=== PATIENT | female | born 1945 | race Caucasian/White ===

== ENCOUNTER 2018-07-20 05:33 | Inpatient (IN) | payer MEDICARE ==
--- NOTE | 2018-07-07 15:07 | HP ---
Amended report to enter cosigning physician. HISTORY AND PHYSICAL: DATE OF ADMISSION/SURGERY: 07/20/18 DATE OF OFFICE VISIT: 07/07/18 SURGEON: Carole Conner MD* (dictated by DEBBIE Mcqueen). PROCEDURE: Right total knee arthroplasty. CHIEF COMPLAINT: Right knee pain. HISTORY OF PRESENT ILLNESS: Ms. Jack is a 72-year-old female with complaints of right knee pain. She has failed conservative treatment and elected to proceed with a right total knee arthroplasty. PAST MEDICAL HISTORY: Hypertension and high cholesterol. PAST SURGICAL HISTORY: 1. Bilateral total hip arthroplasties. 2. Low back surgery. 3. Right knee arthroscopy. 4. Oophorectomy. 5. Removal of a cyst from one of her kidneys. CURRENT MEDICATIONS: 1. Irbesartan 300 mg a day. 2. Hydrochlorothiazide 25 mg a day. 3. Vitamin D. 4. Multivitamin. ALLERGIES: To VICODIN causing hallucinations. DILAUDID causing difficulty breathing. TRAMADOL causing hyperactivity. FLEXERIL causing difficulty swallowing and loss of bladder control and LISINOPRIL. FAMILY HISTORY: Prostate cancer and stroke. SOCIAL HISTORY: She is 72-year-old. She lives with her . She does not smoke or use drugs. REVIEW OF SYSTEMS: A complete 14-point review of systems was reviewed with the patient. It was all negative or noncontributory. She denies history of DVT, PE , hepatitis, HIV, or anesthesia problems. PHYSICAL EXAMINATION GENERAL: She is well developed, well nourished, in no acute distress. VITAL SIGNS: She stands 5 feet 2 inches tall, weighs 209 pounds. Her blood pressure is 126/76. Her heart rate is 72. HEENT: Normocephalic, atraumatic. NECK: Supple. No palpable lymph nodes. PULMONARY: Her lungs are clear to auscultation bilaterally. CARDIO: Regular rate and rhythm. Strong S1, S2. ABDOMEN: Soft, nontender, nondistended. NEUROLOGICAL: She is alert and oriented x3. MUSCULOSKELETAL: Right lower extremity: The skin is intact. There are no open wounds or abrasions. Some moderate effusion of the right knee joint. Some tenderness over the medial and lateral joint line. Range of motion is 15 to 110 degrees of flexion. She has 2+ dorsalis pedis pulses. She is able to dorsiflex and plantarflex. ASSESSMENT AND PLAN: Mr. Jack is a 72-year-old female with endstage osteoarthritis of the right knee. She has failed conservative treatment and elected to proceed with a right total knee arthroplasty. The surgery is scheduled for 07/20/[address] Conner discussed the risks and benefits of the surgery at today's visit and all of her questions were answered. She will follow up with Dr. Conner 2 weeks after the surgery. DEBBIE MCQUEEN [id number]/CPS #: [id number] MTDJalli
[~2018-07-20 05:33] MED LIST: Buffered Lidocaine 1% SYRIN* 1 ML/SYRINGE INTRADERM ONE; Tranexamic Acid 1,000 MG in NS 0.9% 50 ML* (outpatient use) IV SCH
--- OUTSIDE RECORDS SUMMARY | 2018-07-20 05:36 | XMS REPORT | Continuity of Care Document ---
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 Payers Date Identification Numbers Payment Provider Subscriber Policy Number: [id number] Medicare - [employer]swn[employer]md Anna Jack PayID: [id number] [address] [place] [address] Effective: 2011 Policy Number: [employer] Medicare Anna Jack [id number] Supplement PayID: [id number] [address] [place] [address] Family History Date Family Member(s) Observation Comments Father 91 Father Tias Father Hypertension : (age 41 Mother due to Heart rheumatic heart Years) Disease disease Children 3 First Son 54 First Daughter 51 First Daughter Crohn's Disease Second Daughter 38 Second Daughter Anxiety Second Daughter Depression First Sister 65 First Sister Hypertension First Sister Tias Second Sister 60 Second Sister Hypertension Second Sister Hemochromatosis Social History Type Date Description Comments Sex Unknown Tobacco Use Start: Unknown Never Smoked Cigarettes ETOH Use Denies alcohol use Tobacco Use Start: Unknown Patient has never smoked Smoking Status Reviewed: 06/27/18 Patient has never smoked Currently Active Patient is currently sexually active # Partners in a Lifetime 1 STD's No STD History Allergies, Adverse Reactions, Alerts Active Allergies Reaction Severity Comments Date Hydrocodone 04/18/2018 Dilaudid shortness of breath 04/18/2018 Cyclobenzaprine 04/18/2018 Tramadol 04/18/2018 Medications Active Medications SIG Qnty Indications Ordering Date Provider Ergocalciferol take 1 capsule 8caps Bri Trujillo, 04/18/2018 [id number] Capsules by mouth weekly [employer] for vitamin d deficiency Hydrochlorothiazide Take One Tablet 90tabs Bri Ronnie, 25mg Tablets By Mouth Every [employer] Day Irbesartan take one tablet 90tabs Bri Ronnie, 300mg Tablets by mouth every [employer] day Vital Signs Date Vital Result Comment 06/27/2018 11:00am Weight 210.00 lb Weight 95.256 kg BP Systolic 124 mmHg BP Diastolic 76 mmHg Heart Rate 72 /min Body Temperature 98.0 F Respiratory Rate 16 /min 04/18/2018 9:06am Weight 212.00 lb Weight 96.163 kg BP Systolic 124 mmHg BP Diastolic 72 mmHg Heart Rate 72 /min Body Temperature 97.5 F Respiratory Rate 16 /min Height 64.5 inches 5'4.50" BMI (Body Mass Index) 35.8 kg/m2 O2 % BldC Oximetry 97 % Results Test Date Facility Test Result H/L Range Note CBC Auto Diff 04/18/2018 [facility] White Blood 7.0 10^3/uL N 3.5-10.8 [phone] Count Red Blood Count 4.52 10^6/uL N 4.00-5.40 Hemoglobin 14.3 g/dL N 12.0-16.0 Hematocrit 43 % N 35-47 Mean Corpuscular Volume 95 fL N 80-97 Mean Corpuscular Hemoglobin 32 pg High 27-31 Mean Corpuscular HGB Conc 33 g/dL N 31-36 Red Cell Distribution Width 13 % N 10.5-15 Platelet Count 347 10^3/uL N 150-450 Mean Platelet Volume 8.5 fL N 7.4-10.4 Abs Neutrophils 4.8 10^3/uL N 1.5-7.7 Abs Lymphocytes 1.5 10^3/uL N 1.0-4.8 Abs Monocytes 0.5 10^3/uL N 0-0.8 Abs Eosinophils 0.2 10^3/uL N 0-0.6 Abs Basophils 0 10^3/uL N 0-0.2 Abs Nucleated RBC 0 10^3/uL Granulocyte % 68.4 % Lymphocyte % 20.9 % Monocyte % 7.3 % Eosinophil % 2.9 % Basophil % 0.5 % Nucleated Red Blood Cells % 0 Comp Metabolic Panel 04/18/2018 [facility] Sodium 137 mmol/L N 135-145 [phone] Potassium 4.1 mmol/L N 3.5-5.0 Chloride 103 mmol/L N 101-111 Co2 Carbon Dioxide 28 mmol/L N 22-32 Anion Gap 6 mmol/L N 2-11 Glucose 100 mg/dL N 70-100 Blood Urea Nitrogen 24 mg/dL N 6-24 Creatinine 0.68 mg/dL N 0.51-0.95 BUN/Creatinine Ratio 35.3 High 8-20 Calcium 9.1 mg/dL N 8.6-10.3 Total Protein 6.7 g/dL N 6.4-8.9 Albumin 3.9 g/dL N 3.2-5.2 Globulin 2.8 g/dL N 2-4 Albumin/Globulin Ratio 1.4 N 1-3 Total Bilirubin 0.80 mg/dL N 0.2-1.0 Alkaline Phosphatase 60 U/L N 34-104 Alt 12 U/L N 7-52 Ast 18 U/L N 13-39 Egfr Non- 85.3 >60 Egfr 103.2 >60 1 Laboratory test 04/18/2018 [facility] Vitamin D Total 18.0 ng/mL Low 20-50 2 finding [phone] 25(Oh) Lipid Profile 04/18/2018 [facility] Triglycerides 169 mg/dL 3 (Trig/Chol/HDL) [phone] Cholesterol 177 mg/dL 4 HDL Cholesterol 46.1 mg/dL 5 LDL Cholesterol 97 mg/dL 6 1 Because ethnic data is not always readily available, this report includes an eGFR for both -Americans and non- Americans. The National Kidney Disease Education Program (NKDEP) does not endorse the use of the MDRD equation for patients that are not between the ages of 18 and 70, are , have extremes of body size, muscle mass, or nutritional status, or are non- or non-. According to the National Kidney Foundation, irrespective of diagnosis, the stage of the disease is based on the level of kidney function: Stage Description GFR(mL/min/1.73 m(2)) 1 Kidney damage with normal or decreased GFR 90 2 Kidney damage with mild decrease in GFR 60-89 3 Moderate decrease in GFR 30-59 4 Severe decrease in GFR 15-29 5 Kidney failure <15 (or dialysis) 2 [id number] 3 Desirable: <150 Borderline High: 150-199 High: 200-499 Very High: >500 4 Desirable: <200 Borderline High: 200-239 High: >239 5 Low: <40 Desirable: 40-60 High: >60 6 Desirable: <100 Near Optimal: 100-129 Borderline High: 130-159 High: 160-189 Very High: >189 Encounters Type Date Location Provider Dx Diagnosis Office Visit 04/18/2018 Main Office Bri Trujillo NP I10 Essential ( primary) 9:00a hypertension E55.9 Vitamin D deficiency, unspecified M67.441 Ganglion, right hand M25.569 Pain in unspecified knee Plan of Treatment 06/27/2018 - Bri Trujillo NPZ01.818 Encounter for other preprocedural examinationFollow up:.
--- OUTSIDE RECORDS SUMMARY | 2018-07-20 05:36 | XMS REPORT | Continuity of Care Document ---
:1945 External Reference #:[id number] Author Name Vandana Ruby Care Team Providers Name Role Phone Bri Trujillo F.N.P. Primary Care Physician Unavailable Payers Date Identification Numbers Payment Provider Subscriber Policy Number: [id number] Medicare Anna Jack PayID: [id number] [address] [place] [address] Policy Number: [id number] [facility] Anna Jack PayID: [id number] [address] [place] [address] Problems Active Problems Provider Date Localized, primary osteoarthritis Carole Conner M.D. Onset: 05/17/2018 Family History Date Family Member(s) Observation Comments General Hypertension General Stroke Social History Type Date Description Comments Sex Unknown Lives With Spouse Occupation Retired ETOH Use Denies alcohol use Tobacco Use Start: Unknown Patient has never smoked Smoking Status Reviewed: 07/07/18 Patient has never smoked Exercise Type/Frequency Exercises sporadically Allergies, Adverse Reactions, Alerts Active Allergies Reaction Severity Comments Date Vicodin 05/17/2018 Dilaudid 05/17/2018 Tramadol 07/07/2018 Cyclobenzaprine 07/07/2018 Lisinopril 07/07/2018 Inactive Allergies Additional 3 Unknown Medications, Patient Will Call With Orn 05/17/2018 Medications Active Medications SIG Qnty Indications Ordering Date Provider Irbesartan Unknown 300mg Tablets Hydrochlorothiazide Bri Trujillo, 25mg Tablets F.N.P. Vitamin D 1 by mouth Unknown 2000Unit Tablets every day Multivitamin Adult Unknown Medications Administered in Office Medication SIG Qnty Indications Ordering Provider Date Depomedrol 40MG Carole Conner M.D. 05/17/2018 Injection Vital Signs Date Vital Result Comment 07/07/2018 9:15am Height 63.75 inches 5'3.75" Weight 209.00 lb Heart Rate 72 /min BP Systolic 126 mmHg BP Diastolic 76 mmHg BMI (Body Mass Index) 36.2 kg/m2 05/17/2018 10:21am Height 63.75 inches 5'3.75" Weight 213.00 lb Heart Rate 72 /min BP Systolic 136 mmHg BP Diastolic 80 mmHg Pain Level 8 BMI (Body Mass Index) 36.8 kg/m2 Procedures Date Code Description Status 05/17/2018 48406 Inject/Drain Joint/Bursa Major W/O US Completed Encounters Type Date Location Provider Dx Diagnosis Office Visit 05/17/2018 [facility] Conner, M25.561 [facility]461 Effusion, right knee M17.11 Unilateral primary osteoarthritis, right knee Plan of Treatment Future Appointment(s):07/31/2018 1:00 pm - Carole Conner M.D. at [facility].07/20/2018 7:30 am - [facility] 7:30 am - FRANKLIN Batres at [facility].07/20/2018 7:30 am - [facility] 7:30 am - Carole Conner M.D. at [facility].07/07/2018 - Carole Conner M.D.M25.561 Pain in right kneeFollow up:Follow up: 2 weeks after agayajqO54.461 Effusion, right kneeM17.11 Unilateral primary osteoarthritis, right knee
[2018-07-20] MEDS ORDERED: Gabapentin CAP(*) 300 MG ONE (05:58)
[2018-07-20] MEDS ORDERED: Dexamethasone IV* 4 MG/ML 1 ML (4 MG) ONE (05:58)
[2018-07-20] MEDS ORDERED: ceFAZolin 2 GM PREMIX in ORs 2 GM/50 ML BAG ONE (05:59)
[2018-07-20] MEDS ORDERED: celeCOXIB CAP* 200 MG ONE (05:59)
[2018-07-20] MEDS ORDERED: Famotidine IV* 10 MG/ML 2 ML (20 mg) ONE (05:59)
[2018-07-20] MEDS ORDERED: celeCOXIB CAP* 200 MG PO ONE (06:00)
[2018-07-20] MEDS ORDERED: Dexamethasone IV* 4 MG/ML 1 ML (4 MG) IV SLOW PU ONE (06:00)
[2018-07-20] MEDS ORDERED: Famotidine IV* 10 MG/ML 2 ML (20 mg) IV ONE (06:00)
[2018-07-20] MEDS ORDERED: Gabapentin CAP(*) 300 MG PO ONE (06:00)
[2018-07-20] MEDS ORDERED: Lactated Ringers 1000 ML Bag* 1,000 ML IV SCH (06:00)
[2018-07-20] MEDS ORDERED: ROPIVACAINE 5 MG/ML 30 ML BTL (0.5%) ONE ×2 (06:56→07:08)
[2018-07-20] MEDS ORDERED: Phenylephrine 10 MG/ML VIAL* 1 ML VIAL ONE (07:02)
[2018-07-20] MEDS ORDERED: Propofol* 10 MG/ML 20 ML BTL ONE (07:06)
[2018-07-20] MEDS ORDERED: Bupivacaine 0.5% SDV PF* 30ML VIAL ONE (07:06)
[2018-07-20] MEDS ORDERED: fentaNYL* 50 MCG/ML 2 ML VIAL (100 MCG VIAL) ONE (07:06)
[2018-07-20] MEDS ORDERED: Midazolam* 1 MG/ML 5 ML VIAL (5 MG) ONE (07:06)
[2018-07-20] MEDS ORDERED: Ondansetron INJ* 2 MG/ML VIAL ONE (07:06)
[2018-07-20] MEDS ORDERED: KETAMINE HCL* 50 MG/ML 10 ML VIAL ONE (07:07)
[2018-07-20] MEDS ORDERED: Lidocaine 2% PF * 5 ML VIAL ONE (08:22)
[2018-07-20] MEDS ORDERED: Glycopyrrolate IV* 0.2 MG/ML 1 ML VIAL ONE (09:16)
[2018-07-20] MEDS ORDERED: Atropine 1MG/ML INJ* 1 ML VIAL ONE (09:16)
[2018-07-20] MEDS ORDERED: Ondansetron INJ* 2 MG/ML VIAL IV PRN ×2 (09:18→10:04)
[2018-07-20] MEDS ORDERED: fentaNYL* 50 MCG/ML 2 ML VIAL (100 MCG VIAL) IV PRN (09:18)
[2018-07-20] MEDS ORDERED: Naloxone* 0.4 MG/ML 1 ML VIAL IV PRN (09:18)
[2018-07-20] MEDS ORDERED: DiMENhydriNATE IV* 50 MG/ML VIAL IV PUSH PRN (09:18)
[2018-07-20] MEDS ORDERED: Polyethylene Glycol 3350* 17 GM PACKET PO PRN (10:04)
[2018-07-20] MEDS ORDERED: diPHENhydraMINE PO* 25 MG PO PRN (10:04)
[2018-07-20] MEDS ORDERED: diPHENhydraMINE IV* 50 MG/ML 1 ml VIAL (BENADRYL) IV PRN (10:04)
[2018-07-20] MEDS ORDERED: Magnesium Hydroxide LIQ* 30 ML UDC PO PRN (10:04)
[2018-07-20] MEDS ORDERED: Morphine INJ* 2 MG/ML 1 ML SYRINGE (TWO MG - NEW SYRINGE VERSION) IV PRN (10:04)
[2018-07-20] MEDS ORDERED: Bisacodyl SUPP* 10 MG SUPP PR PRN (10:04)
[2018-07-20] MEDS ORDERED: traMADol TAB* 50 MG PO PRN (10:04)
[2018-07-20] MEDS: Acetaminophen TAB* 325 MG PO SCH ×2 (13:37→18:01)
[2018-07-20] MEDS: Lactated Ringers 1000 ML Bag* 1,000 ML IV SCH ×2 (13:57→23:59)
[2018-07-20] MEDS: oxyCODONE TAB* 5 MG TAB PO PRN ×3 (14:20→23:57)
--- NOTE | 2018-07-20 14:47 | PN ---
Progress Note - Progress Note Date of Service: 07/20/18 Note: Patient seen at bedside, eating. Feeling well without right knee pain, s/p RTK this am. +DF right ankle, sensation intact. Dressing dry.
[2018-07-20] MEDS: Ketorolac INJ* 15 MG/ML 1 ML VIAL IV PUSH PRN ×2 (15:19→22:13)
[2018-07-20] MEDS: ceFAZolin 1 GM ADVAN(*) 1 GM in NS 0.9% 50 ML* 50 ML IVPB SCH ×2 (16:11→23:59)
--- NOTE | 2018-07-20 17:22 | CONSULT ---
Subjective Date of Service: 07/20/18 Interval History: This is a 72 year old female patient with history of HTN and OA that presented to Dr. Conner with complaint of right knee pain that failed conservative outpatient treatment. She has undergone elective RTKA today and has had an uneventful perioperative course. She describes some difficult pain in the immediate post operative period which is now improved. She denies fever, fatigue or chills, no SOB, no chest pain, no n/v. No further complaints. We are consulted for medical co-management. Family History: Unchanged from Admission - non-contributory Social History: Unchanged from Admission - no tobacco, no ETOH, no drug use Past Medical History: Unchanged from Admission - OA, HTN, obesity Review of Systems - Measurements Intake and Output: Intake and Output Last 24 Hours 07/18/18 07/19/18 07/20/18 07/21/18 06:59 06:59 06:59 06:59 Intake Total 2300 Output Total 1025 Balance 1275 Weight 212 lb Intake: IV Fluids 2000 LR 0 lr 2000 Oral 300 Output: Mcdaniel 1025 - Review of Systems Constitutional Symptoms: Negative: Weight Gain, Weight Loss, Weakness, Fatigue, Fever, Night Sweats, Unexplained Falls, Other Dermatology: Negative: Normal, Rash, Skin Lesions, Cancer, Skin Lumps, Other HEENT: Negative: Normal, Change in Hearing, Vertigo, Dental Problems, Tinnitus, Sinus Problem, Other Eyes: Negative: Normal, Change in Vision, Double Vision, Eye Pain, Glaucoma, Cataract, Contacts or Glasses, Other Thyroid: Negative: Normal, Goiter, Thyroid Nodule, Cold Intolerance, Heat Intolerance , Sweatiness, Tremor, Frequent Defecation, Constipation, Palpitations, Primary Hypothyroidism, Primary Hyperthyroidism, Weight Loss, Weight Gain, Change in Skin/Hair, Change in Menstruation, Radiation Exposure, Other Pulmonary: Negative: Normal, Cough, Sputum, Hemoptysis, Wheezing, Respiratory Distress, Shortness of Breath, COPD, Asthma, Exercise Intolerance, Home Oxygen, Other Cardiology: Negative: Normal, Chest Pain, Shortness of Breath, Palpitations, Swelling of Ankles, Peripheral Vascular Dis, Edema, Faintness, Syncope, Claudication, Proximal NocturnalDyspnea, Orthopnoea, Other Gastroenterology: Negative: Normal, Abdominal Pain, Nausea, Vomiting, Anorexia, Indigestion, Difficulty Swallowing, Heartburn, Constipation, Diarrhea, Blood in Stools, Change in Bowel Habits, Haematemesis, Melena, Other Musculoskeletal: Positive: Joint Pain, Joint Stiffness Negative: Arthritis, Osteoporosis, Low Back Pain, Sciatica, Joint Deformities , Kyphoscoliosis, Other Endocrinology: Positive: Obesity Objective Active Medications: Acetaminophen (Tylenol Tab*) 975 mg PO Q8H [facility] Last Admin: 07/20/18 13:37 Dose: Not Given Apixaban (Eliquis*) 2.5 mg PO BID [facility] Bisacodyl (Dulcolax Supp*) 10 mg W[place] DAILY PRN PRN Reason: constipation Cholecalciferol (Vitamin D Tab*) 2,000 units PO QAM [facility] Diphenhydramine HCl (Benadryl Iv*) 25 mg IV Q6H PRN PRN Reason: itching Diphenhydramine HCl (Benadryl Po*) 25 mg PO Q6H PRN PRN Reason: INSOMNIA Docusate Sodium (Colace Cap*) 100 mg PO BID [facility] Hydrochlorothiazide (Hydrodiuril Tab*) 25 mg PO QPM [facility] Tranexamic Acid 1,000 mg/ (Sodium Chloride) 60 mls @ 120 mls/hr IV ONCE Stop: 07/20/18 23:59 Cefazolin Sodium 1 gm/ Sodium (Chloride) 50 mls @ 200 mls/hr IVPB Q8H [facility] Stop: 07/21/18 08:14 Last Admin: 07/20/18 16:11 Dose: 200 mls/hr Lactated Ringer's (Lactated Ringers 1000 Ml Bag*) 1,000 mls @ 100 mls/hr IV PER RATE [facility] Last Admin: 07/20/18 13:57 Dose: 100 mls/hr Ketorolac Tromethamine (Toradol Inj*) 15 mg IV PUSH Q6H PRN PRN Reason: PAIN Last Admin: 07/20/18 15:19 Dose: 15 mg Lactulose (Lactulose*) 30 ml PO Q6H PRN PRN Reason: constipation Losartan Potassium (Cozaar Tab*) 100 mg PO QPM [facility] Magnesium Hydroxide (Milk Of Magnesia Liq*) 30 ml PO BID [facility] Magnesium Hydroxide (Milk Of Magnesia Liq*) 30 ml PO Q6H PRN PRN Reason: constipation Morphine Sulfate (Morphine Inj (Syringe))*) 2 mg IV Q2H PRN PRN Reason: PAIN Ondansetron HCl (Zofran Inj*) 4 mg IV Q6H PRN PRN Reason: nausea Oxycodone HCl (Roxycodone Tab*) 10 mg PO Q4H PRN PRN Reason: breakthru pain Last Admin: 07/20/18 14:20 Dose: 10 mg Oxycodone/Acetaminophen (Percocet 5/325 Tab*) 2 tab PO Q3H PRN PRN Reason: PAIN - MODERATE Oxycodone/Acetaminophen (Percocet 5/325 Tab*) 1 tab PO Q3H PRN PRN Reason: PAIN - MODERATE Polyethylene Glycol/Electrolytes (Miralax*) 17 gm PO DAILY PRN PRN Reason: Constipation Tramadol HCl (Ultram*) 50 mg PO Q6H PRN PRN Reason: PAIN Vital Signs - 8 hr 07/20/18 07/20/18 07/20/18 09:58 10:00 10:10 Temperature 97.5 F Pulse Rate 72 71 72 Respiratory 17 Rate Blood Pressure 124/60 117/66 118/78 (mmHg) O2 Sat by Pulse 94 95 95 Oximetry 07/20/18 07/20/18 07/20/18 10:21 10:25 10:30 Temperature Pulse Rate 70 68 66 Respiratory 17 17 15 Rate Blood Pressure 121/64 123/74 117/70 (mmHg) O2 Sat by Pulse 97 96 96 Oximetry 07/20/18 07/20/18 07/20/18 10:45 11:00 11:15 Temperature Pulse Rate 63 58 58 Respiratory 25 15 17 Rate Blood Pressure 123/70 118/67 114/63 (mmHg) O2 Sat by Pulse 96 96 96 Oximetry 07/20/18 07/20/18 07/20/18 11:30 11:45 12:00 Temperature Pulse Rate 56 56 53 Respiratory 16 9 10 Rate Blood Pressure 113/63 119/62 125/63 (mmHg) O2 Sat by Pulse 92 93 95 Oximetry 07/20/18 07/20/18 07/20/18 12:15 12:30 12:45 Temperature Pulse Rate 55 52 59 Respiratory 14 9 13 Rate Blood Pressure 99/60 116/60 115/65 (mmHg) O2 Sat by Pulse 96 94 93 Oximetry 07/20/18 07/20/18 07/20/18 13:26 13:43 14:20 Temperature 97.4 F Pulse Rate 50 Respiratory 18 18 18 Rate Blood Pressure 129/59 (mmHg) O2 Sat by Pulse 94 Oximetry 07/20/18 07/20/18 07/20/18 14:26 15:26 16:42 Temperature 97.5 F 97.3 F Pulse Rate 54 62 Respiratory 18 18 18 Rate Blood Pressure 120/56 145/77 (mmHg) O2 Sat by Pulse 95 92 Oximetry Oxygen Devices in Use Now: None Appearance: alert, well appearing, NAD Eyes: No Scleral Icterus, PERRLA Ears/Nose/Mouth/Throat: NL Teeth, Lips, Gums, Mucous Membranes Moist Neck: NL Appearance and Movements; NL JVP, Trachea Midline Respiratory: Symmetrical Chest Expansion and Respiratory Effort, Clear to Auscultation Cardiovascular: NL Sounds; No Murmurs; No JVD, RRR, No Edema Abdominal: NL Sounds; No Tenderness; No Distention Extremities: No Edema, No Clubbing, Cyanosis Skin: No Rash or Ulcers, - - dressing CDI Neurological: Alert and Oriented x 3, - - diminished sensation to light touch RLE Nutrition: Taking PO's Assessment/Plan - Billing Assessment: Ms. Jack is a 72 year old female with hx of HTN and OA that presented to [facility] today for elective RTKA: 1. OA, s/p RTKA - POD0 - POC as per ortho - Pain control, bowel regimen - OOB with PT/OT - DVT prophylaxis with eliquis 2.5mg PO BID 2. HTN - BP stable, restart irbesartan and HCTZ at discharge, may restart tomorrow if BP elevated and renal function normal - Follow labs VTE PPX: - Eliquis Diet: - Regular as tolerated Code Status: - Full code Admission Status and Rationale: - Inpatient, dispo as per orthopedics. Thank you for the courtesy of this consultation. Will follow distantly.
[2018-07-20] MEDS ORDERED: Losartan TAB* 25 MG PO SCH (18:00)
[2018-07-20] MEDS ORDERED: Hydrochlorothiazide TAB* 25 MG PO SCH (18:00)
--- NOTE | 2018-07-20 18:46 | OP ---
Operative Report - Blank - Operative Report Date of Operation: 07/20/18 Note: DEANN VELEZ 1945 Date of Surgery: 07/20/18 Carole Conner MD Gas Systems Worker: Tamanna LEWIS did help throughout the procedure with preparation of the knee, wound retraction, manipulation of the knee, and wound closure. Anesthesiologist: Lilliam Jaeger MD Anesthesia Type: Spinal Preoperative Diagnosis: Right severe degenerative osteoarthritis of the knee Postoperative Diagnosis: As above Procedure Performed: Right Total Knee Arthroplasty Tourniquet time: 47 minutes Complications: None Specimen: Bone and cartilage from the right knee joint sent to pathology. Hardware Used: Cemented Moran [employer] Nephew total knee hardware was used - For the femur a size 5 narrow right legion posterior stabilized femoral component, for the tibia a size 3 right josé miguel II tibial baseplate, for the insert a size 9mm 3-4 posterior stabilized articular polyethylene insert, and for the patella a size 32 3-peg all poly patella. Brief History/Indication: DEANN VELEZ was known in clinic and had a history of severe right knee pain and swelling. She failed conservative treatment with anti-inflammatories, pain pills, intra-articular injections and physical therapy. She elected to undergo right total knee arthroplasty due to continued pain and decreased quality of life. Radiographs showed severe end stage osteoarthritis of the knee with bone on bone contact. Informed consent was obtained from the patient. She understood the risks of surgery included but were not limited to: bleeding, infection, damage to nearby structures, intraoperative fracture, nerve palsy, failure of the hardware, early loosening, knee stiffness or loss of motion, anesthesia complications, stroke, heart attack , blood clot and . She wished to proceed. Intra-Operative Findings: Intraoperatively the patient was noted to have severe loss of cartilage in all 3 compartments of the knee. Description of the Procedure: DEANN VELEZ was identified in the preanesthesia unit. Her right knee was marked as the correct operative side. Informed consent was signed and placed in the chart. The patient was taken to the operating room and placed under anesthesia without complication. A berry catheter was placed. A tourniquet was placed on the right thigh. The right lower extremity was prepped and draped in the usual sterile fashion. Preoperative time-out was made to correctly identify the patient, side and site. Appropriate intraoperative antibiotics were given within one hour of incision. Tourniquet was inflated. A midline incision was made and carried sharply down to the extensor mechanism. A new 10 blade was used to make a standard medial parapatellar arthrotomy. The patella was subluxed laterally. Electrocautery was used to dissect soft tissue off the superomedial tibia to the midsagittal plane. The knee was flexed up. The anterior horn of the lateral meniscus and the ACL were sharply incised. A drill was used to enter the distal femur. The intramedullary distal femoral cutting guide was pinned on the distal femur. The oscillating saw was used to make the distal femoral cut. The external rotation guide was pinned on the distal femur and the distal femur was sized to a size 5. The size 5 multi-cutting jig was pinned on the distal femur. The oscillating saw was used to make the appropriate 4 chamfer cuts. Next the PCL was completely released. The extramedullary tibial cutting guide was pinned on the proximal tibia and the oscillating saw was used to make the proximal tibial cut perpendicular to the mechanical axis of the tibia. The bone was carefully removed. The knee was brought out into full extension. The spacer block was placed and had excellent fit with the knee in full extension. The medial and lateral ligaments were well balanced. The flexion and extension gaps were well balanced. The knee was flexed up. Lamina adolescent coordinator was placed both medially and laterally. Any remaining meniscus was removed with electrocautery. Curved osteotome was used to remove any posterior osteophytes. The tibial tray and drop gwen were placed and confirmed a satisfactory tibial cut. The size 5 narrow right femoral trial was impacted onto the distal femur. This trial had excellent fit and stability. The box for the posterior stabilized implant was prepared using a box cut osteotome and a reamer. Next a tibial tray trial and 9 mm insert trial was placed. The knee was taken through a range of motion and had full extension to 130 degrees of flexion. Patellofemoral tracking was satisfactory. The patella was inverted and sized to a size 32. Three peg holes were drilled through the size 32 drill guide. The trial patella was placed and the knee was taken through a range of motion. There was satisfactory patellofemoral tracking. All trials were removed. The tibia was subluxed anteriorly and sized to a size 3. The proximal tibial was prepared with a size 3 keel punch. All bony cut surfaces were irrigated with sterile saline and dried. Final implants were cemented into place starting with the tibia, followed by the femur, and last the patella. A 9 mm insert trial was placed and the knee was brought into full extension. Tourniquet was turned down and the knee was copiously irrigated with sterile saline. Electrocautery was used to obtain meticulous hemostasis. Once the cement had fully cured, the insert trial was removed. Any excess cement was removed from around the hardware and capsule. Final insert chosen was a 9 mm posterior stabilized José Miguel II articular insert size 3-4. Stability of the insert was checked and noted to be stable. The extensor mechanism was closed using number 1 vicryls. The rest of the incision was closed in a layered fashion using 0 and 2-0 vicryls. The skin was closed using 3-0 nylon suture. Sterile xeroform, 4x4s and webril were used to cover the incision. Tyrel wrap and cold pack were used to cover the dressings. The patients anesthesia was reversed without difficulty. She was taken to the PACU in stable condition. Intended weight-bearing will be as tolerated.
[2018-07-20] MEDS: Magnesium Hydroxide LIQ* 30 ML UDC PO SCH (21:25)
[2018-07-20] MEDS: Docusate CAP* 100 MG PO SCH (21:25)
[2018-07-20] MEDS: oxyCODONE/Acetamin 5/325 MG* TAB PO PRN (21:28)
[2018-07-21] MEDS: oxyCODONE/Acetamin 5/325 MG* TAB PO PRN ×5 (02:48→21:02)
[2018-07-21] MEDS: Acetaminophen TAB* 325 MG PO SCH ×3 (03:26→21:05)
[2018-07-21 06:12] LABS: Hematocrit 32 % (35-47); Mean Platelet Volume 7.9 fL (7.4-10.4); Platelet Count 274 10^3/uL (150-450)
[2018-07-21 06:25] LABS: BUN/Creatinine Ratio 36.2 (8-20); Calcium 8.5 mg/dL (8.6-10.3); EGFR African American 101.5 (>60); EGFR Non-African American 83.9 (>60); Potassium 3.9 mmol/L (3.5-5.0)
[2018-07-21] MEDS: ceFAZolin 1 GM ADVAN(*) 1 GM in NS 0.9% 50 ML* 50 ML IVPB SCH (08:46)
[2018-07-21] MEDS: Docusate CAP* 100 MG PO SCH ×2 (08:46→21:03)
[2018-07-21] MEDS: Apixaban* 2.5 MG TAB PO SCH ×2 (08:46→21:03)
[2018-07-21] MEDS: Magnesium Hydroxide LIQ* 30 ML UDC PO SCH ×2 (08:47→21:04)
[2018-07-21] MEDS: Cholecalciferol TAB* 1000 UNITS PO SCH (08:47)
--- NOTE | 2018-07-21 10:47 | PN ---
Progress Note - Progress Note Date of Service: 07/21/18 SOAP: Subjective: []Patient seen OOb in chair, moderate knee pain. Still to master stairs in PT. She is concerned about post op constipation and urinary retention that were problems in the past for her. She hopes to have BM before going home. Objective: [] Vital Signs Temp 98.4 F 07/21/18 07:45 Pulse 62 07/21/18 07:45 Resp 16 07/21/18 08:47 BP 116/43 07/21/18 07:45 Pulse Ox 93 07/21/18 08:00 Intake & Output 07/20/18 07/21/18 07/21/18 18:59 06:59 18:59 Intake Total 2760 2120 240 Output Total 1025 600 Balance 1735 1520 240 Intake: IV Fluids 2000 950 LR 0 950 lr 2000 IVPB 50 50 ABX - CEFAZOLIN 50 50 Oral 710 1120 240 Output: Mcdaniel 1025 600 Laboratory Results - last 24 hr 07/21/18 07/21/18 05:50 05:50 Hgb 11.0 L Hct 32 L Plt Count 274 MPV 7.9 Sodium 138 Potassium 3.9 Chloride 105 Carbon Dioxide 29 Anion Gap 4 BUN 25 H Creatinine 0.69 Est GFR ( Amer) 101.5 Est GFR (Non-Af Amer) 83.9 BUN/Creatinine Ratio 36.2 H Glucose 139 H Calcium 8.5 L Right knee dressings are dry and intact calf NT + DF left ankle sensation and circulation intact distally Assessment: []s/p right total knee arthroplasty POD #1 Plan: []increase bowel regimen to prevent post op constipation Eliquis for DVT prophylaxis PT/OT WBAT RLE Dressing change 07/22 with possible discharge home
--- NOTE | 2018-07-21 10:56 | PN ---
Subjective Date of Service: 07/21/18 Interval History: HOSPITALIST PROGRESS NOTE Patient seen and examined at bedside. Care reviewed and d/w Paloma Coyle RN. She feels well today. Pain is controlled and she was able to sleep last night. Her SO2 dropped to high 80s low 90s while sleeping, placed on 2 liters supplemental O2. Family History: Unchanged from Admission - non-contributory Social History: Unchanged from Admission - no tobacco, no ETOH, no drug use Past Medical History: Unchanged from Admission - OA, HTN, obesity Objective Active Medications: Acetaminophen (Tylenol Tab*) 975 mg PO Q8H [facility] Last Admin: 07/21/18 03:26 Dose: Not Given Apixaban (Eliquis*) 2.5 mg PO BID [facility] Last Admin: 07/21/18 08:46 Dose: 2.5 mg Bisacodyl (Dulcolax Supp*) 10 mg MO DAILY PRN PRN Reason: constipation Cholecalciferol (Vitamin D Tab*) 2,000 units PO QAM [facility] Last Admin: 07/21/18 08:47 Dose: 2,000 units Diphenhydramine HCl (Benadryl Iv*) 25 mg IV Q6H PRN PRN Reason: itching Diphenhydramine HCl (Benadryl Po*) 25 mg PO Q6H PRN PRN Reason: INSOMNIA Docusate Sodium (Colace Cap*) 100 mg PO BID [facility] Last Admin: 07/21/18 08:46 Dose: 100 mg Hydrochlorothiazide (Hydrodiuril Tab*) 25 mg PO QPM [facility] Lactated Ringer's (Lactated Ringers 1000 Ml Bag*) 1,000 mls @ 100 mls/hr IV PER RATE [facility] Last Admin: 07/20/18 23:59 Dose: 100 mls/hr Ketorolac Tromethamine (Toradol Inj*) 15 mg IV PUSH Q6H PRN PRN Reason: PAIN Last Admin: 07/20/18 22:13 Dose: 15 mg Lactulose (Lactulose*) 30 ml PO Q6H PRN PRN Reason: constipation Losartan Potassium (Cozaar Tab*) 100 mg PO QPM [facility] Magnesium Hydroxide (Milk Of Magnesia Liq*) 30 ml PO BID [facility] Last Admin: 07/21/18 08:47 Dose: 30 ml Magnesium Hydroxide (Milk Of Magnesia Liq*) 30 ml PO Q6H PRN PRN Reason: constipation Morphine Sulfate (Morphine Inj (Syringe))*) 2 mg IV Q2H PRN PRN Reason: PAIN Ondansetron HCl (Zofran Inj*) 4 mg IV Q6H PRN PRN Reason: nausea Oxycodone HCl (Roxycodone Tab*) 10 mg PO Q4H PRN PRN Reason: breakthru pain Last Admin: 07/20/18 23:57 Dose: 10 mg Oxycodone/Acetaminophen (Percocet 5/325 Tab*) 2 tab PO Q3H PRN PRN Reason: PAIN - MODERATE Last Admin: 07/21/18 08:47 Dose: 2 tab Oxycodone/Acetaminophen (Percocet 5/325 Tab*) 1 tab PO Q3H PRN PRN Reason: PAIN - MODERATE Last Admin: 07/20/18 21:28 Dose: 1 tab Polyethylene Glycol/Electrolytes (Miralax*) 17 gm PO DAILY PRN PRN Reason: Constipation Tramadol HCl (Ultram*) 50 mg PO Q6H PRN PRN Reason: PAIN Vital Signs - 8 hr 07/21/18 07/21/18 07/21/18 02:48 04:11 04:48 Temperature 98.2 F Pulse Rate 60 Respiratory 16 16 16 Rate Blood Pressure 101/45 (mmHg) O2 Sat by Pulse 94 Oximetry 07/21/18 07/21/18 07/21/18 07:45 08:00 08:47 Temperature 98.4 F Pulse Rate 62 Respiratory 16 16 Rate Blood Pressure 116/43 (mmHg) O2 Sat by Pulse 93 93 Oximetry Oxygen Devices in Use Now: Nasal Cannula Appearance: Pleasant obese lady lying in bed in NAD. Eyes: No Scleral Icterus Ears/Nose/Mouth/Throat: Mucous Membranes Moist Neck: Trachea Midline Respiratory: Symmetrical Chest Expansion and Respiratory Effort, Clear to Auscultation Cardiovascular: RRR - Normal S1 and S2 Abdominal: NL Sounds; No Tenderness; No Distention Extremities: - - Cryo unit to right knee; thigh and calf are soft, sensation intact Neurological: Alert and Oriented x 3, NL Muscle Strength and Tone Result Diagrams: 07/21/18 05:50 07/21/18 05:50 Assess/Plan/Problems-Billing Assessment: Ms. Jack is a 72 year old female with PMH of HTN, HLD, obesity with BMI 37 , DJD, admitted for elective RTKA. - Patient Problems (1) Total knee replacement status Comment: - Management as per Ortho. - PT as tolerated. - Continue pain management. (2) Nocturnal hypoxia Comment: - Suspect ALBERTO in the setting of obesity. Will continue to monitor SO2, but will need sleep study as outpatient. (3) HTN (hypertension) Comment: - BP on the low side of normal - continue HCTZ/ARB with holding parameters. (4) DVT prophylaxis Comment: - Apixaban as per Ortho. Status and Disposition: Hospitalist service will continue to follow with you.
[2018-07-21] MEDS: Lactated Ringers 1000 ML Bag* 1,000 ML IV SCH (13:05)
[2018-07-21] MEDS ORDERED: Lactated Ringers 1000 ML Bag* 1,000 ML IV SCH (15:00)
[2018-07-21] MEDS: Losartan TAB* 25 MG PO SCH (17:30)
[2018-07-21] MEDS: Hydrochlorothiazide TAB* 25 MG PO SCH (17:30)
[2018-07-21] MEDS: oxyCODONE TAB* 5 MG TAB PO PRN (23:57)
[2018-07-22] MEDS: oxyCODONE/Acetamin 5/325 MG* TAB PO PRN ×4 (03:22→21:00)
[2018-07-22] MEDS: Acetaminophen TAB* 325 MG PO SCH ×3 (03:31→17:29)
[2018-07-22 06:19] LABS: Hematocrit 32 % (35-47); Hemoglobin 10.7 g/dL (12.0-16.0); Mean Platelet Volume 7.8 fL (7.4-10.4); Platelet Count 272 10^3/uL (150-450)
[2018-07-22] MEDS: oxyCODONE TAB* 5 MG TAB PO PRN ×2 (06:21→12:10)
[2018-07-22] MEDS: Apixaban* 2.5 MG TAB PO SCH ×2 (08:55→21:00)
[2018-07-22] MEDS: Cholecalciferol TAB* 1000 UNITS PO SCH (08:55)
[2018-07-22] MEDS: Magnesium Hydroxide LIQ* 30 ML UDC PO SCH ×2 (08:55→21:37)
--- NOTE | 2018-07-22 09:21 | PN ---
Subjective Date of Service: 07/22/18 Interval History: HOSPITALIST PROGRESS NOTE Patient seen and examined at bedside. Care reviewed and d/w Mau Milligan RN. She feels more like herself today. Pain is controlled. Able to void, but PVR still greater than 200ml. Family History: Unchanged from Admission - non-contributory Social History: Unchanged from Admission - no tobacco, no ETOH, no drug use Past Medical History: Unchanged from Admission - OA, HTN, obesity Objective Active Medications: Acetaminophen (Tylenol Tab*) 975 mg PO Q8H [facility] Last Admin: 07/22/18 03:31 Dose: Not Given Apixaban (Eliquis*) 2.5 mg PO BID [facility] Last Admin: 07/22/18 08:55 Dose: 2.5 mg Bisacodyl (Dulcolax Supp*) 10 mg ID DAILY PRN PRN Reason: constipation Cholecalciferol (Vitamin D Tab*) 2,000 units PO QAM [facility] Last Admin: 07/22/18 08:55 Dose: 2,000 units Hydrochlorothiazide (Hydrodiuril Tab*) 25 mg PO QPM [facility] Last Admin: 07/21/18 17:30 Dose: Not Given Lactated Ringer's (Lactated Ringers 1000 Ml Bag*) 1,000 mls @ 100 mls/hr IV PER RATE [facility] Last Admin: 07/21/18 13:05 Dose: 100 mls/hr Ketorolac Tromethamine (Toradol Inj*) 15 mg IV PUSH Q6H PRN PRN Reason: PAIN Last Admin: 07/20/18 22:13 Dose: 15 mg Lactulose (Lactulose*) 30 ml PO Q6H PRN PRN Reason: constipation Losartan Potassium (Cozaar Tab*) 100 mg PO QPM [facility] Last Admin: 07/21/18 17:30 Dose: Not Given Magnesium Hydroxide (Milk Of Magnesia Liq*) 30 ml PO BID [facility] Last Admin: 07/22/18 08:55 Dose: 30 ml Magnesium Hydroxide (Milk Of Magnesia Liq*) 30 ml PO Q6H PRN PRN Reason: constipation Morphine Sulfate (Morphine Inj (Syringe))*) 2 mg IV Q2H PRN PRN Reason: PAIN Ondansetron HCl (Zofran Inj*) 4 mg IV Q6H PRN PRN Reason: nausea Oxycodone HCl (Roxycodone Tab*) 10 mg PO Q4H PRN PRN Reason: breakthru pain Last Admin: 07/22/18 06:21 Dose: 10 mg Oxycodone/Acetaminophen (Percocet 5/325 Tab*) 2 tab PO Q3H PRN PRN Reason: PAIN - MODERATE Last Admin: 07/22/18 08:55 Dose: 2 tab Oxycodone/Acetaminophen (Percocet 5/325 Tab*) 1 tab PO Q3H PRN PRN Reason: PAIN - MODERATE Last Admin: 07/20/18 21:28 Dose: 1 tab Polyethylene Glycol/Electrolytes (Miralax*) 17 gm PO DAILY PRN PRN Reason: Constipation Tramadol HCl (Ultram*) 50 mg PO Q6H PRN PRN Reason: PAIN Vital Signs - 8 hr 07/22/18 07/22/18 07/22/18 02:42 03:22 03:27 Temperature 99.0 F Pulse Rate 79 Respiratory 18 18 17 Rate Blood Pressure 120/45 (mmHg) O2 Sat by Pulse 93 Oximetry 07/22/18 07/22/18 07/22/18 06:21 08:00 08:09 Temperature 98.8 F Pulse Rate 84 Respiratory 18 15 15 Rate Blood Pressure 105/46 (mmHg) O2 Sat by Pulse 94 94 Oximetry 07/22/18 08:55 Temperature Pulse Rate Respiratory 18 Rate Blood Pressure (mmHg) O2 Sat by Pulse Oximetry Oxygen Devices in Use Now: None Appearance: Pleasant obese lady lying in bed in NAD Eyes: No Scleral Icterus Ears/Nose/Mouth/Throat: Mucous Membranes Moist Neck: Trachea Midline Respiratory: Symmetrical Chest Expansion and Respiratory Effort, Clear to Auscultation Cardiovascular: RRR - Normal S1 and S2 Extremities: - - Cryo unit to right knee, no calf tenderness, sensation intact Neurological: Alert and Oriented x 3, NL Muscle Strength and Tone Result Diagrams: 07/22/18 06:02 07/21/18 05:50 Assess/Plan/Problems-Billing Assessment: Ms. Jack is a 72 year old female with PMH of HTN, HLD, obesity with BMI 37 , DJD, admitted for elective RTKA. - Patient Problems (1) Total knee replacement status Comment: - Management as per Ortho. - PT as tolerated. - Continue pain management. (2) Urinary retention with incomplete bladder emptying Comment: - She had issues with urinary retention when she had prior surgery, requiring Mcdaniel catheter. - Continue to monitor PVR and straight cath if >200ml. (3) Nocturnal hypoxia Comment: - Suspect ALBERTO in the setting of obesity. Will continue to monitor SO2, but will need sleep study as outpatient. (4) HTN (hypertension) Comment: - BP on the low side of normal - continue HCTZ/ARB with holding parameters. (5) DVT prophylaxis Comment: - Apixaban as per Ortho. Status and Disposition: Hospitalist service will continue to follow with you.
--- NOTE | 2018-07-22 10:35 | PN ---
Progress Note - Progress Note Date of Service: 07/22/18 SOAP: Subjective: Pt is doing well, tired. Pain controlled. Denies F/C, CP/SOB or calf pain. Had to be straight cathed overnight and no BM Objective: PE- 72 y/o WDWN F NAD RLE- dressing changed, inc c/d/i, +DF/pF ankle, calf soft NT, NVI distally Vital Signs Temp Pulse Resp BP Pulse Ox 98.8 F 84 18 105/46 94 07/22/18 08:09 07/22/18 08:09 07/22/18 08:55 07/22/18 08:09 07/22/18 08:09 Laboratory Results - last 24 hr 07/22/18 06:02 Hgb 10.7 L Hct 32 L Plt Count 272 MPV 7.8 Assessment: []s/p right total knee arthroplasty POD #2 Plan: []increase bowel regimen to prevent post op constipation Eliquis for DVT prophylaxis PT/OT WBAT RLE Urinary retention and constipation so will continue to monitor and if improved tomorrow possible DC to home with VNS
[2018-07-22] MEDS: Losartan TAB* 25 MG PO SCH (17:30)
[2018-07-22] MEDS: Hydrochlorothiazide TAB* 25 MG PO SCH (17:31)
[2018-07-22] MEDS: Ketorolac INJ* 15 MG/ML 1 ML VIAL IV PUSH PRN (21:47)
[2018-07-23] MEDS: oxyCODONE TAB* 5 MG TAB PO PRN ×2 (01:17→10:52)
[2018-07-23] MEDS: Acetaminophen TAB* 325 MG PO SCH ×2 (02:35→10:59)
[2018-07-23 05:23] LABS: Hematocrit 31 % (35-47); Hemoglobin 10.6 g/dL (12.0-16.0); Mean Platelet Volume 7.9 fL (7.4-10.4); Platelet Count 272 10^3/uL (150-450)
[2018-07-23] MEDS: Apixaban* 2.5 MG TAB PO SCH (09:08)
[2018-07-23] MEDS: Cholecalciferol TAB* 1000 UNITS PO SCH (09:08)
[2018-07-23] MEDS: Magnesium Hydroxide LIQ* 30 ML UDC PO SCH (09:09)
--- NOTE | 2018-07-23 10:38 | PN ---
Progress Note - Progress Note Date of Service: 07/23/18 SOAP: Subjective: Pt is doing well. Pain controlled. Denies F/C, CP/SOB, calf pain Objective: PE- 72 y/o WDWN F NAD RLE- dressing changed, inc c/d/i, calf soft NT, +DF/PF ankle, +2 DP pulse, SILT distally Vital Signs Temp Pulse Resp BP Pulse Ox 98.7 F 86 16 113/54 92 07/23/18 07:27 07/23/18 07:27 07/23/18 07:27 07/23/18 07:27 07/23/18 07:27 Laboratory Results - last 24 hr 07/23/18 04:50 Hgb 10.6 L Hct 31 L Plt Count 272 MPV 7.9 Assessment: []s/p right total knee arthroplasty POD #3 Plan: []continue bowel regimen- constipation resolved Eliquis for DVT prophylaxis PT/OT WBAT RLE Pt has continued urinary retention. We will cont to monitor. When retention stops possible DC tonight vs tomorrow
[2018-07-23] MEDS: Ketorolac INJ* 15 MG/ML 1 ML VIAL IV PUSH PRN (14:37)
[2018-07-23 16:10] VITALS: BP 137/42
[2018-07-23] MEDS: oxyCODONE/Acetamin 5/325 MG* TAB PO PRN (16:55)
[2018-07-23] MEDS: Hydrochlorothiazide TAB* 25 MG PO SCH (16:55)
[2018-07-23] MEDS: Losartan TAB* 25 MG PO SCH (16:55)
--- NOTE | 2018-07-24 08:47 | DS ---
Date of service: 07/23/18 Date of Admission:07/20/18 Date of Discharge: 07/23/18 Date of Surgery: 07/20/18 Attending Orthopedic Provider: Dr. Conner Pre-operative Diagnosis: Right knee osteoarthritis Operative Procedure: Right total knee arthroplasty Disposition of Patient: Home with VNS Condition of Patient: Stable History: DEANN VELEZ is a 72 year old F with years of increasingly severe right knee pain due to end stage osteoarthritis. Patient has failed conservative management and has elected to undergo a right total knee replacement Hospital Course: DEANN was admitted to [facility] on 07/20/18. Patient underwent a right total knee arthroplasty without complication followed by a brief recovery in PACU and transfer to the Short Stay Surgical Unit in stable condition. Our hospitalist service, physical therapy and occupational therapy also participated in this patients care. Post-op day 1: patient was alert and in no acute distress. Dressing was clean, dry and intact. Operative extremity dorsiflexion and plantarflexion intact, sensation intact to light touch distally, DP2+. Post-op day two: dressing was changed, incision was clean , dry and intact. Patient had some urinary retention and constipation that resolved with a bowel regimen and time. Patient was deemed to be medically and orthopedically stable for discharge by post op day 3. Physical therapy goals were met. DISCHARGE INSTRUCTIONS: Weight Bearing as tolerated Wound Care: OK to shower on post-op day 3, no bathing/ swimming/ submerging wound. Use gentle soap, pat dry. Cover with gauze, LOWELL wrap or tape. Call Orthopedic office for increased drainage, redness, increased pain, or fever. Go to ER with shortness of breath or chest pain. Diet: Regular diet, increase fluids and fiber to prevent constipation. Continue to use stool softeners, call office if no bowel motion within 48 hours. - Continue physical therapy and occupational therapy exercises as shown. - Visiting home nurse to do wound checks. - Eliquis- 2.5mg twice daily x 1 month Do not take ibuprofen, aleve or aspirin while on eliquis - Pain control with: Percocet 5/325 mg 1-2 tabs by mouth every 4-6 hours as needed for pain. Maximum of 10 tabs per day Please note that percocet contains tylenol (acetaminophen). Maximum daily dose of tylenol is 4000 mg from all sources. Continue colace for constipation and use OTC Miralax as needed Unable to give you muscle relaxers (cyclobenzaprine) because you are allergic - Antibiotics required prior to any dental work. FOLLOW UP: Follow up with Dr. Conner Within 10-14 days, call for appointment Please call our office with any questions or concerns ([phone]) medications sent to [facility]
== END 2018-07-23 18:00 | disposition home health service (06) | DRG 470 ==
LOC: AA 05:33 → SSU 10:04
PROVIDERS: ADMIT Orthopaedic Surgery Adult Reconstructive Orthopaedic Surgery; ATTEND Orthopaedic Surgery Adult Reconstructive Orthopaedic Surgery
PROC: 0SRC0J9 Replacement of Right Knee Joint with Synthetic Substitute, Cemented, Open Approach (ICD-10-PCS; principal; 2018-07-20 07:30)
DX: M17.11 Unilateral primary osteoarthritis, right knee (principal); I10 Essential (primary) hypertension; M25.461 Effusion, right knee; K57.90 Diverticulosis of intestine, part unspecified, without perforation or abscess without bleeding; E78.5 Hyperlipidemia, unspecified; E66.9 Obesity, unspecified; M25.761 Osteophyte, right knee; Z96.649 Presence of unspecified artificial hip joint; E78.00 Pure hypercholesterolemia, unspecified; R09.02 Hypoxemia; R33.9 Retention of urine, unspecified; K59.00 Constipation, unspecified; I49.9 Cardiac arrhythmia, unspecified; Z90.721 Acquired absence of ovaries, unilateral; Z80.42 Family history of malignant neoplasm of prostate; Z82.3 Family history of stroke; Z88.6 Allergy status to analgesic agent; Z88.8 Allergy status to other drugs, medicaments and biological substances; Z82.49 Family history of ischemic heart disease and other diseases of the circulatory system; Z81.8 Family history of other mental and behavioral disorders; Z68.37 Body mass index [BMI] 37.0-37.9, adult
CPT/HCPCS: 36415; 80048; 85014; 85018; 85049; 93005; A9270-GY; C1776; G8978-GP-CJ; G8979-GP-CI; J0461; J0690; J1100; J1885; J2250; J2405; J2704; J2795; J3010; J3490